=== PATIENT | male | born 1970 | race African-American/Black ===

== ENCOUNTER 2017-08-30 09:20 | Emergency (ER) | payer SELFPAY ==
[~2017-08-30] VITALS: Ht 190.5 cm; Wt 91.0 kg
[2017-08-30] MEDS ORDERED: KETOROLAC 30MG/ML VIAL IV STA (09:40)
[2017-08-30] MEDS ORDERED: SODIUM CHLORIDE 0.9% 1,000 ML IV ONE (09:40)
[2017-08-30] MEDS ORDERED: FAMOTIDINE 20MG/2ML VIAL IV STA (09:40)
[2017-08-30] MEDS ORDERED: ONDANSETRON HCL 4MG/2ML VIAL IV STA (09:40)
[2017-08-30 10:11] LABS: BASOPHILS % 0.7 % (0.0-2.0); HEMATOCRIT. 41.4 % (42.0-52.0); HEMOGLOBIN. 13.6 g/dL (14.0-18.0); LYMPHOCYTES % 13.1 % (20.0-50.0); MEAN CORPUSCULAR HEMOGLOBIN 26.6 pg (28.0-32.0); MEAN CORPUSCULAR VOLUME 80.9 fL (80.0-94.0); MEAN PLATELET VOLUME 7.8 fl (7.4-10.4); NEUTROPHILS % 73.2 % (40.0-76.0); PLATELET 145 x1000/uL (130-400); RED BLOOD CELL COUNT 5.12 mill/uL (4.7-6.1); RED CELL DISTRIBUTION WIDTH 14.5 % (11.6-14.6)
[2017-08-30 10:18] LABS: PROTHROMBIN TIME 10.3 sec (9.4-11.6)
[2017-08-30 10:26] LABS: CHLORIDE 99 mEq/L (98-107)
[2017-08-30 12:20] LABS: CLARITY URINE CLEAR (CLEAR); COLOR URINE YELLOW (YELLOW); KETONES URINE 2+ (NEGATIVE); LEUKOCYTE ESTERASE URINE NEGATIVE (NEGATIVE); NITRITE URINE NEGATIVE (NEGATIVE); OCCULT BLOOD URINE 1+ (NEGATIVE); PROTEIN URINE 3+ (NEGATIVE); SPECIFIC GRAVITY URINE 1.039 (1.005-1.030); UROBILINOGEN URINE 0.2 E.U./dL (0.2-1.0)
[2017-08-30] MEDS ORDERED: METOCLOPRAMIDE HCL 10MG/2ML VIAL IV ONE (12:30)
[2017-08-30 12:39] LABS: *AMPHETAMINES SCREEN URINE NEGATIVE (NEGATIVE); *BARBITURATES SCREEN URINE NEGATIVE (NEGATIVE); *BENZODIAZEPINES SCREEN URINE NEGATIVE (NEGATIVE); *COCAINE SCREEN URINE NEGATIVE (NEGATIVE); CANNABINOID URINE SCREEN PRESUMTIVE POSITIVE (NEGATIVE); METHADONE URINE SCREEN NEGATIVE (NEGATIVE); OPIATES URINE SCREEN NEGATIVE (NEGATIVE); PHENCYCLIDINE URINE SCREEN NEGATIVE (NEGATIVE)
[2017-08-30 14:29] VITALS: BP 153/84
== END 2017-08-30 14:36 | disposition home or self-care (01) ==
LOC: ER 09:24
DX: R11.2 Nausea with vomiting, unspecified (principal); E11.9 Type 2 diabetes mellitus without complications; I10 Essential (primary) hypertension; F12.10 Cannabis abuse, uncomplicated
CPT/HCPCS: 36415; 71045; 80053; 80305; 81003; 82962; 83690; 85025; 85610; 96361; 96374; 96375; 99285; J1885; J2405; J2765; J3490; J7030; Z7610

== ENCOUNTER 2018-02-06 21:42 | Emergency (ER) | payer SELFPAY ==
[~2018-02-06] VITALS: Ht 190.5 cm; Wt 107.8 kg
[2018-02-07] MEDS ORDERED: SODIUM CHLORIDE 0.9% 1,000 ML IV ONE ×2 (01:50→04:00)
[2018-02-07] MEDS ORDERED: ONDANSETRON HCL 4MG/2ML VIAL IV ONE (02:00)
[2018-02-07 02:08] LABS: CHLORIDE 100 mEq/L (98-107)
[2018-02-07 02:11] LABS: BG BASE EXCESS 5.6 mmol/L (-2.0-2.0); BG CARBOXYHEMOGLOBIN 1.5 % (0.5-1.5); BG DEOXYHEMOGLOBIN 2.4 % (0.0-5.0); BG FRACTION INSPIRED OXYGEN 21; BG HCO3 ACT 28.3 mmol/L (22.0-26.0); BG METHEMOGLOBIN 0.2 % (0.0-1.5); BG OXYGEN SATURATION 97.6 % (92.0-98.5); BG OXYHEMOGLOBIN 95.9 % (94.0-97.0); BG PCO2 35.1 mmHg (35.0-45.0); BG PH 7.524 (7.350-7.450); BG PO2 93.6 mmHg (75.0-100.0); BG SAMPLE SITE LEFT RADIAL; BG TOTAL HEMOGLOBIN 15.3 g/dL (12.0-18.0); BG VENT MODE ROOM AIR
[2018-02-07] MEDS ORDERED: AMLODIPINE 5MG TABLET PO ONE (04:00)
[2018-02-07 07:01] VITALS: BP 189/70
== END 2018-02-07 08:10 | disposition home or self-care (01) ==
LOC: ER 02-07 07:49
DX: R11.2 Nausea with vomiting, unspecified (principal); E11.9 Type 2 diabetes mellitus without complications; I10 Essential (primary) hypertension; F12.10 Cannabis abuse, uncomplicated
CPT/HCPCS: 36415; 36600; 80048; 82375; 82805; 82962; 96361; 96374; 99284; J2405; J7030; J7040; Z7610